=== PATIENT | female | born 1975 | race Caucasian/White ===

== ENCOUNTER 2024-12-07 22:13 | Emergency (ER) | payer MEDICAID, SELFPAY ==
[2024-12-07 22:14] VITALS: BMI 43.9
[2024-12-07 22:53] VITALS: BP 135/86; PULSE 72; RESP 18; TEMP 36.9; O2SAT 96
--- NOTE | 2024-12-07 23:27 | EDRME_ITS ---
Rapid Medical Screening Exam RME Arrival date/time: 12/07/24 22:13 Chief Complaint: Hip Injury/Pain Time Seen by Provider: 12/07/24 22:18 Vital signs: Vital Signs Temperature 98.5 F 12/07/24 22:53 Pulse Rate 72 12/07/24 22:53 Respiratory Rate 18 12/07/24 22:53 Blood Pressure 135/86 H 12/07/24 22:53 Pulse Oximetry (%) 96 12/07/24 22:53 Oxygen Delivery Method Room Air 12/07/24 22:53 Vital signs reviewed by provider: Yes RME Narrative: 49-year-old female presents to the ED with complaint of right hip pain and low back pain. She has a previous history of right hip fracture. She decided to do aerobics last week and has had pain ever since. She denies any numbness or tingling to her upper or lower extremities. She denies any loss of bladder or bowel control. X-rays of the lumbar spine and right hip/pelvis ordered. She was also given Toradol 30 mg IM. I have greeted and performed a focused initial assessment of this patient. A co mprehensive ED assessment and evaluation of the patient, analysis of all test results, and completion of the medical decision making process will be conducted by additional ED providers.
--- NOTE | 2024-12-07 23:39 | XR_ITS ---
Examination: Lumbar spine 3 views Technique: AP lateral coned lateral lower lumbar spine 3 views Exam date and time: December 07, 2024 2353 hrs. Indications: Pain in the lower back after working out one week ago. Findings: Minimal lumbar levoscoliosis which may be positional No acute lumbar fracture Moderate disc narrowing L1-L2, L3-L4 Advanced disc narrowing L4-L5 Moderate lumbar spondylosis Impression: No lumbar fracture Diffuse lumbar degenerative disc disease, advanced L4-L5
--- NOTE | 2024-12-07 23:39 | XR_ITS ---
Examination:Right hip AP, lateral, AP pelvis 3 views Technique: Hip AP lateral, AP pelvis, 3 views Exam date and time:December 07, 2024 11:50 PM Indications: Right hip pain after working out one week ago Findings: No right hip fracture or dislocation Left hip bones of the pelvis intact Moderate bilateral hip osteoarthritis Impression: Moderate bilateral hip osteoarthritis.
[2024-12-08] MEDS: KETOROLAC INJ 60 MG/2 ML VIAL 30 MG IM (00:24)
[2024-12-08 00:59] LABS: HCG Qualitative,Urine Negative
--- NOTE | 2024-12-08 01:23 | PD.EDHIP ---
Lower Extremity Injury RME/HPI General Chief Complaint: Hip Injury/Pain Stated Complaint: RT HIP PAIN X1WK Time Seen by Provider: 12/07/24 22:18 Arrival date/time: 12/07/24 22:13 Limitations: no limitations RME / HPI RME / HPI Narrative: Dr. Juarez's Main ED Evaluation: 49yo female presents to the ED for a chief complaint of right hip pain. Denies any falls or injuries. Patient states she started doing aerobic exercises last week and has had pain since then. Patient states she was concerned when her back stiffened up while she was in the shower tonight, so she came in for evaluation. Patient denies any headache, neck pain, chest pain, shortness of breath, abdominal pain or any other associated symptoms. Related Data Home Medications ?Medication ?Instructions ?Recorded ?Confirmed calcium carbonate (Calcium 600) 600 mg PO QDAY 06/14/20 02/10/21 clotrimazole 1 % topical cream 1 applic topical BID 06/14/20 02/10/21 loratadine 10 mg tablet 10 mg PO QDAY 06/14/20 02/10/21 Previous Rx's ?Medication ?Instructions ?Recorded diphenhydramine HCl 25 mg capsule 25 mg PO Q6H PRN allergic reaction 02/10/21 (Benadryl) #60 caps prednisone 50 mg tablet 50 mg PO QDAY #5 tabs 02/10/21 ciprofloxacin HCl 500 mg tablet 500 mg PO BID #14 tabs 02/17/24 (Cipro) dicyclomine 20 mg tablet 20 mg PO BID #20 tabs 02/17/24 ondansetron 4 mg disintegrating 4 mg PO Q8H #20 tabs 02/17/24 tablet Allergies Allergy/AdvReac Type Severity Reaction Status Date / Time Sulfa (Sulfonamide Allergy Intermediate Rash Verified 02/17/24 10:47 Antibiotics) Review of Systems Review of Systems Systems Reviewed: All systems reviewed, normal except as documented Past Medical History Past Medical History NEUROLOGIC: Positive Neurological Disorders and Head Trauma; Negative Seizures CARDIAC: Negative Cardiac Disorders, Congestive Heart Failure, Edema or Cellulitis RESPIRATORY: Negative Chronic Obstructive Pulmonary Disease (COPD), Asthma, Pneumonia, Tuberculosis or Sleep Apnea GASTROINTESTINAL: Negative Gastrointestinal Disorders or Hepatitis GENITOURINARY: Negative Genitourinary Disorders or Renal Disease REPRODUCTIVE: Positive Previous Pregnancies MUSCULOSKELETAL: Negative Musculoskeletal Disorders ENT: Positive Head Trauma ENDOCRINE: Negative Endocrine Disorders, Diabetes Mellitus Type 1 or Diabetes Mellitus Type 2 HEMATOLOGIC: Negative Blood Disorders or Sickle Cell Disease PSYCHO/SOCIAL: Positive Bipolar Disorder and Depression OTHER HISTORY: Positive Chicken Pox, Cancer and Cervical Cancer; Negative Hospitalization, Autoimmune Disease, Shingles, Falls, Blood Transfusions, Blood Transfusion Reaction, Anesthesia Reactions, Chemotherapy, Radiation Therapy, MRSA, Measles or Mumps Family History FAMILY HISTORY: Negative Family Psychiatric Problems, Family Respiratory Disorders, Family Cardiac Disorders, Family Gastrointestinal Problems, Family Cancer, Family Surgery or Family Anesthesia Reaction Surgical History SURGICAL: Negative Pacemaker Social History SMOKING STATUS: Never smoker ED Exam General Limitations: Present no limitations General appearance: Present alert and in no apparent distress Head Head exam: Present atraumatic Eye Eye exam: Present normal appearance, PERRL and EOMI ENT ENT exam: Present normal exam, normal oropharynx and mucous membranes moist Neck Neck exam: Present normal inspection, full ROM and trachea midline Chest Chest inspection: Present normal inspection and symmetric chest wall rise Respiratory Respiratory exam: Present normal lung sounds bilaterally Cardiovascular Cardiovascular exam: Present regular rate, normal rhythm and normal heart sounds Abdominal Exam Abdominal exam: Present soft and normal bowel sounds Extremities Exam Extremities exam: Present normal inspection and full ROM Back Exam Back exam: Present normal inspection and full ROM Neurological Exam Neurological exam: Present alert, oriented X3 and CN II-XII intact Psychiatric Psychiatric exam: Present normal affect and normal mood Skin Skin exam: Present warm, dry, intact and normal color Course Quality Measures none Orders Category Date Time Status XR hip RT w pelvis 2-3V Stat Exams 12/07/24 23:39 Taken XR lumbar spine 2-3V Stat Exams 12/07/24 23:39 Taken HCG Qualitative,Urine Stat Lab 12/08/24 00:41 Completed Ketorolac Inj [Toradol Inj] Med 12/07/24 23:39 Discontinued 30 mg IM X1 ONE Vital Signs Vital signs: Vital Signs Temperature 98.5 F 12/07/24 22:53 Pulse Rate 72 12/07/24 22:53 Respiratory Rate 18 12/07/24 22:53 Blood Pressure 135/86 H 12/07/24 22:53 Pulse Oximetry (%) 96 12/07/24 22:53 Oxygen Delivery Method Room Air 12/07/24 22:53 Extremity Injury, Lower MDM Narrative MDM Narrative:: Scribe Attestation: 12/08/24 - I, Jhoana Kunal, am scribing for and in the presence of Dr. Juarez. Patient presents with no new trauma however she is having some right hip area contusion pain. At this time I do not feel the patient has cauda equina, there is no sciatica-like pain, and no weakness or numbness. The patient was treated with Toradol here in emergency department. Her x-rays were reviewed which do not show any acute findings. The patient is aware that she can take [id number] meds as needed. The patient will use hot compresses and or hot showers before and after exercises to help with the transition to new exercise program. Return precautions are given and understood. Patient data External records reviewed:: [facility] previous records (Per chart review, patient was seen here on 02/17/24 for enteritis.) Clinical information provided by:: patient Social determinants that could affect healthcare access:: none Patient has the following chronic illnesses:: none How is presenting disease/condition affected by chronic disease/condition?: no chronic disease Evaluation data The following diagnostics were reviewed and interpreted by me:: lab results and radiology exam(s) Lab and/or radiology exams considered but not ordered:: none Interpretation Summary: HCG is negative. Lumbar spine x-ray is negative for any fracture, dislocation, soft tissue swelling or step-off, according to my interpretation. Right hip with pelvis x-ray is negative for any fracture, dislocation or soft tissue swelling, according to my interpretation. Medications / Prescriptions Medications or Prescriptions considered but not ordered:: none Medication administrations:: Medication Administration History Discontinued Medications Ketorolac Tromethamine (Ketorolac Inj 60 Mg/2 Ml Vial) 30 mg IM X1 ONE Stop: 12/07/24 23:40 Last Admin: 12/08/24 00:24 Dose: 30 mg Documented By: TEDDY see above Consultations Consultation(s) initiated? (list below): No Diagnosis Extremity Injury, Lower Differential Diagnosis: fracture of hip and other (Hip dislocation, musculoskeletal strain, hip contusion) Most likely diagnosis given after review of the tests above:: see clinical impression Admission Indicated Admission indicated?: not indicated Admission Request Was there a request for admission?: No Disposition Plan Disposition Plan: Discharge Discharge Attestation Discharge Attestation: The patient and all family members were given an opportunity to ask questions and understood the discharge instructions. Discharge instructions specifically effects, indications for sooner follow up or return to the emergency department, and the expected course of current diagnosis. Patient condition: Stable Discharge Plan Plan Patient condition on transfer: Stable Prescriptions/Referrals Prescriptions/Med Rec: No Action calcium carbonate [Calcium 600] 600 mg calcium (1,500 mg) Tablet 600 mg PO QDAY clotrimazole 1 % Cream 1 applic TOPICAL BID loratadine 10 mg Tablet 10 mg PO QDAY diphenhydramine HCl [Benadryl] 25 mg capsule 25 mg PO Q6H PRN (Reason: allergic reaction) Qty: 60 0RF prednisone 50 mg tablet 50 mg PO QDAY Qty: 5 0RF ciprofloxacin HCl [Cipro] 500 mg tablet 500 mg PO BID Qty: 14 0RF dicyclomine 20 mg tablet 20 mg PO BID Qty: 20 0RF ondansetron 4 mg tablet,disintegrating 4 mg PO Q8H Qty: 20 0RF Referrals: [facility] [Outside] - In 1 week No Primary/Family,Physician [Primary Care Provider] - In 1 week Problem List Clinical Impression: Contusion of muscle Patient/Caregiver Discharge Instructions Education Materials: Contusion Bone Tx Additional Instructions: Please take Tylenol 650 mg twice a day for the next 2 to 3 days. You can take [id number] Motrin 600 mg twice a day with food. Since you are starting a new exercise program this could be the reason why you are starting to have some muscle spasms. You may want to continue but be more gentle with your body. Please return to the emergency department for worsening symptoms, 35 minutes, you have any weakness or numbness, or any other concerns. Today your x-rays did not show that you had a fracture but however you have no reported trauma so I do not believe that you need any additional studies however if you are still having concerns you can follow-up with your primary care in the next 7 to 14 days to get repeat x-rays if needed. She is out Print Language: South African
[2024-12-08 01:48] VITALS: BP 132/76; PULSE 82; RESP 18; TEMP 37; O2SAT 98
== END 2024-12-08 12:03 | disposition home or self-care (01) ==
PROVIDERS: Physician Assistant; Emergency Provider Emergency Medicine
DX: S70.01XA Contusion of right hip, initial encounter (principal); X58.XXXA Exposure to other specified factors, initial encounter; Y93.A3 Activity, aerobic and step exercise
CPT/HCPCS: 72100; 73502; 81025; 96372; 99283; J1885

== ENCOUNTER 2025-04-07 19:11 | Emergency (ER) | payer MEDICAID, SELFPAY ==
[2025-04-07 19:13] VITALS: BMI 43.9
--- NOTE | 2025-04-07 19:20 | XR_ITS ---
Examination: Duplex scan of the lower extremity, unilateral left Date and time of exam: April 07, 2025 202 hours INDICATIONS: Left leg pain beginning 2 months ago Technique: Duplex scan of the extremity veins using B-mode/grayscale imaging and Doppler spectral analysis and color flow Attention is directed to internal echogenicity, compression and augmentation involving these veins, color flow assessment, spectral analysis Findings: Major deep venous structures in the extremity demonstrate normal course and caliber. There is no evidence of deep vein thrombosis. Normal color flow and spectral analysis Impression: Negative for DVT..
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
[2025-04-07 21:46] VITALS: BP 173/92; PULSE 61; RESP 16; TEMP 36.7; O2SAT 98
== END 2025-04-07 21:52 | disposition home or self-care (01) ==
LOC: SERX 21:38
PROVIDERS: PCP Physician Assistant
DX: S89.92XA Unspecified injury of left lower leg, initial encounter (principal); X58.XXXA Exposure to other specified factors, initial encounter
CPT/HCPCS: 93971; 99283

== ENCOUNTER 2025-08-20 10:30 | Outpatient (RCR) | payer MEDICAID, SELFPAY ==
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
--- NOTE | 2025-08-02 15:57 | PT.ODAYNRPT ---
PT Outpatient Daily Note OP Daily Note Outpatient Physical Therapy Treatment Date: 08/02/25 Visit Reasons: PAIN IN RT/LEFT KNEE Subjective: Pt's is about the same. left knee hurts more than right knee pain Objective: Please see flow chart for list of ther ex performed Assessment: patient completed exercises; however, reports of knee pain L>R with most exercises Plan: Continue with PT Length of Time (minutes) of Treatment: 30 Minutes Procedure Charges Therapeutic Exercise 30 minutes: Yes
--- NOTE | 2025-08-04 11:21 | PT.ODAYNRPT ---
PT Outpatient Daily Note OP Daily Note Outpatient Physical Therapy Treatment Date: 08/04/25 Visit Reasons: PAIN IN RT/LEFT KNEE Subjective: Pt's knee sore and itching since last session. Minimal changes in pain. Objective: Please see flow chart for list of ther ex performed Assessment: no change in overall pain, however, less intense pain with exercises Plan: Continue with PT Length of Time (minutes) of Treatment: 30 Minutes Procedure Charges Therapeutic Exercise 30 minutes: Yes
--- NOTE | 2025-08-11 12:05 | PT.ODAYNRPT ---
PT Outpatient Daily Note OP Daily Note Outpatient Physical Therapy Treatment Date: 08/11/25 Visit Reasons: PAIN IN RT/LEFT KNEE Subjective: Pt reports B knee pain and stiffness. Objective: Please see flow sheet for ther ex list. Assessment: Pt demonstrates poor activity tolerance due to pain response. Plan: Continue with poC. Length of Time (minutes) of Treatment: 30 Minutes Procedure Charges Therapeutic Exercise 30 minutes: Yes
--- NOTE | 2025-08-17 11:57 | PT.ODAYNRPT ---
PT Outpatient Daily Note OP Daily Note Outpatient Physical Therapy Treatment Date: 08/17/25 Visit Reasons: PAIN IN RT/LEFT KNEE Subjective: Pt continues to have pain in the knees with swelling. Physical therapy has helped minimally Objective: Please see flow chart for list of ther ex performed Assessment: progress patient to more closed chain exercises with good tolerance. Pt require sitting rest breaks between exercises due to increase knee pain Plan: Continue with PT Length of Time (minutes) of Treatment: 30 Minutes Procedure Charges Therapeutic Exercise 30 minutes: Yes
--- NOTE | 2025-08-20 10:50 | PT.ODS1RPT ---
PT OP Progress/Discharge Note Date of Service: 08/20/25 Progress Note/DC Note Progress Note/Discharge Note: DC Note Patient Information Visit Reasons: PAIN IN RT/LEFT KNEE Medical Diagnosis: M25.561; M25.562 Treatment Dx #1: Left Knee Pain Treatment Dx #2: Right Knee Pain Service Continue Service or Discharge: Discharge Discharge Date: 08/20/25 Status Subjective: Pt's knee feels about the same and continues to have pain. Pt still notice locking and popping of knee. Due to symptoms and pain Pt has limitation with standing, walking, chores, self care, cooking, cleaning, and perofrming recreational activities. Objective: Bilateral Knee AROM: all motions are WNL with pain at end range Bilateral Knee MMTs: grossly 4/5 Bilateral Hip MMTs: grossly 3+/5 Special Test (+) Gabrielle (+) Thessaly Assessment: Pt demonstrate functional knee AROM and strength, however, no change in overall pain leading to difficulty with ADLs. Pt will no longer benefit from physical therapy due to minimal progress towards goals. Recommend knee MRI to help determine nature of pain. Pt instructed to follow up with PCP for further consultation; thank you for your referrals Plan: D/C home and follow up with [facility] Recommend knee MRI Procedure Charges Therapeutic Exercise 30 minutes: Yes
== END 2025-08-25 23:59 | disposition home or self-care (01) ==
LOC: CPTX 10:30
PROVIDERS: PCP Family Medicine; Referring Provider Family Medicine; Visit Provider Family Medicine
DX: M25.562 Pain in left knee (principal); M25.561 Pain in right knee; R53.1 Weakness; R26.2 Difficulty in walking, not elsewhere classified; R26.89 Other abnormalities of gait and mobility; G89.29 Other chronic pain
CPT/HCPCS: 97110; 97162